=== PATIENT | female | born 1965 | race Caucasian/White ===

== ENCOUNTER → 2016-09-01 | Outpatient (CLI) | payer SELFPAY ==
[2016-09-03 18:05] LABS: ANA w/Reflex to Titer POSITIVE (NEGATIVE)
== END | disposition home or self-care (01) ==
LOC: LABWHC1 14:03
PROVIDERS: ATTEND Physician Assistant Medical
DX: D89.9 Disorder involving the immune mechanism, unspecified (principal); E88.9 Metabolic disorder, unspecified
CPT/HCPCS: 36415; 82139; 83516; 86038; 86039; 86235

== ENCOUNTER → 2017-08-13 | Outpatient (CLI) | payer SELFPAY | END | disposition home or self-care (01) | LOC: LABWHC1 12:19 | PROVIDERS: ATTEND Physician Assistant Medical | DX: G93.40 Encephalopathy, unspecified (principal); E88.9 Metabolic disorder, unspecified | CPT/HCPCS: 36415 ==